=== PATIENT | male | born 1960 | race Caucasian/White ===

== ENCOUNTER 2018-01-30 09:57 | Day surgery (SDC) | payer OTHER ==
--- NOTE | 2018-01-30 07:42 | HP ---
DATE OF SURGERY: 01/30/2018 HISTORY OF PRESENT ILLNESS: The patient is a 57 year-old with past history of enlarging cyst or other nodule right neck posterior-lateral area that is symptomatic and desires excision. No cancer history and no history in the family in the past according to the patient. Enlarging neck cyst or nodule. I feel he would benefit from excisional biopsy. PAST MEDICAL HISTORY: Hypertension. PAST SURGICAL HISTORY: He denies prior surgery. MEDICATIONS: Losartan, metoprolol. ALLERGIES: NKDA. FAMILY HISTORY: Hypertension. Negative for cancer. SOCIAL HISTORY: Only occasional smoking. No packs per day. Occasional alcohol use denies abuse. REVIEW OF SYSTEMS: Twelve systems reviewed per admission assessment. No chest pain or palpitations other systems negative or noncontributory as above and per preadmission questionnaire. PHYSICAL EXAMINATION: GENERAL: No acute distress. HEENT: Sclerae nonicteric. NECK: No JVD. He does have a cyst or other nodule on posterior-lateral area. CHEST: Equal excursion, nonlabored breathing. CVS: Regular rate and rhythm. ABDOMEN: Soft. EXTREMITIES: No significant edema. NEURO: Alert, oriented, moving extremities symmetrically. No gross motor deficits noted. IMPRESSION: Enlarging right neck cyst or other nodule. I feel the patient would benefit from excisional biopsy. Risks and benefits explained in detail but not limited to bleeding or infection, risk of hematoma or seroma formation, risks of aches, pains, burning or numbness, possible need for packing of the wound, along with risk of sensory or motor nerve irritation or scar formation, risk of numbness or weakness but not limited to. He understands as well as general risk of anesthesia, deep venous thrombosis, pulmonary embolism, pneumonia. He understands if cyst or other benign nodule likely will not recur but he could get a similar cyst adjacent to or elsewhere on his body. He understands and agrees to the planned procedure. We will proceed with excisional biopsy of right neck cyst or nodule as an outpatient.
[~2018-01-30 09:57] MED LIST: Lactated Ringers 1,000 ML IV ONE; Lactated Ringers 1,000 ML IV SCH; Sensorcaine 0.25% 10 ML ONE
[2018-01-30] MEDS ORDERED: Zofran 4 MG/2 ML VIAL IV ONE (09:58)
[2018-01-30] MEDS ORDERED: Quelicin Fliptop 200 MG/10 ML IV ONE (09:58)
[2018-01-30] MEDS ORDERED: SUBLIMAZE 100 MCG/2 ML IV ONE (09:58)
[2018-01-30] MEDS ORDERED: Decadron 4 MG INJ IV ONE (09:58)
[2018-01-30] MEDS ORDERED: BRIDION 200MG/2ML IV ONE (09:58)
[2018-01-30] MEDS ORDERED: Zemuron 100 MG/10 ML IV ONE (09:58)
[2018-01-30] MEDS ORDERED: DIPRIVAN 200 MG/20 ML IV ONE (09:58)
[2018-01-30] MEDS ORDERED: TORAdol 30 mg Injection IV ONE (09:58)
[2018-01-30] MEDS ORDERED: Lactated Ringers 1,000 ML IV ONE (10:05)
[2018-01-30] MEDS ORDERED: KEFZOL 1 GM ONE (11:38)
[2018-01-30 13:24] VITALS: BP 149/92; PULSE 65; O2SAT 97
--- NOTE | 2018-01-31 07:40 | OP ---
SURGERY DATE/TIME: 01/30/2018 1148 PREOPERATIVE DIAGNOSIS: Enlarging right neck cyst or nodule. POSTOPERATIVE DIAGNOSIS: Enlarging right neck cyst or nodule. PROCEDURE: Incisional biopsy of right neck cyst (approximately 2 cm) with intermediate closure. SURGEON: Dr. Jayro Mahoney. ANESTHESIA: General. ESTIMATED BLOOD LOSS: Minimal. INDICATIONS: As noted above. Risks and benefits explained in detail and not limited to and consent obtained. The site is confirmed and marked with the patient in the preoperative holding area. DESCRIPTION OF PROCEDURE AND FINDINGS: The patient is taken to the operating room. General anesthesia introduced. Placed in lateral position. Appropriate padding and positioning per anesthesia and OR staff. The neck is prepped and draped in usual sterile fashion. After official time out and no disagreement with planned procedure, in spindle-shaped fashion marking out around what appeared to be a pit communicating with this cystic nodule. Dissection carried down through the skin circumferentially around what appeared to be an inclusion cyst. Slowly and carefully dissected free from underlying tissue staying directly on the cyst capsule. This took some time but was slowly and carefully accomplished staying directly on the cyst capsule dissecting it from the surrounding structures. It was then passed off. It measured about 2 cm in size. Good hemostasis is noted. The skin and superficial subcu had a small amount of oozing that was controlled with pin point needle cautery with a setting of 12 to 15 low setting. Good hemostasis noted. The wound was clean. It was then closed in layers with deep and superficial subcu closed with 3-0 Vicryl. Skin closed with 4-0 Vicryl. Steri-Strips and sterile dressing applied. The patient tolerated the procedure well. There were no immediate complications. Findings were discussed with the family out in the waiting area. He was transferred to recovery room in stable condition.
== END 2018-01-30 13:30 | disposition home or self-care (01) ==
LOC: SDC 09:57
PROVIDERS: ATTEND Surgery
DX: R22.1 Localized swelling, mass and lump, neck (principal); R20.8 Other disturbances of skin sensation; I10 Essential (primary) hypertension
CPT/HCPCS: 88304; 94250; J0330; J0690; J1100; J1885; J2405; J2704; J3010